=== PATIENT | male | born 1955 | race Caucasian/White ===

== ENCOUNTER 2017-10-06 03:45 | Inpatient (IN) | payer OTHER ==
[~2017-10-06] VITALS: Ht 162.6 cm; Wt 77.7 kg
[~2017-10-06 03:45] MED LIST: ERGO400 PO; METF500 PO; Prinivil10 MG PO
[2017-10-06 04:13] LABS: BASOPHILS PERCENT AUTO 1 % (0-2); EOSINOPHILS ABSOLUTE AUTO 0.23 K/mm3 (0.00-0.68); EOSINOPHILS PERCENT AUTO 1 % (0-6); Hematocrit 37.1 % (37.0-53.0); Hemoglobin 12.2 g/dL (13.5-17.5); IMMATURE GRAN ABSOLUTE AUTO 0.15 K/mm3 (0.00-0.10); IMMATURE GRAN PERCENT AUTO 1 % (0-1); LYMPHOCYTES ABSOLUTE AUTO 4.38 K/mm3 (0.84-5.20); LYMPHOCYTES PERCENT AUTO 22 % (21-46); MONOCYTES ABSOLUTE AUTO 1.05 K/mm3 (0.16-1.47); MONOCYTES PERCENT AUTO 5 % (4-13); Mean Corpuscular HGB 30.5 pg (26.0-34.0); Mean Corpuscular HGB Conc 32.9 g/dL (31.5-36.5); Mean Corpuscular Volume 93 fL (80-100); Mean Platelet Volume 9.5 fL (9.1-12.4); NEUTROPHILS ABSOLUTE AUTO 14.06 K/mm3 (1.96-9.15); NEUTROPHILS PERCENT AUTO 70 % (41-73); Platelet Count 275 K/mm3 (150-400); RDW Coefficient Variation 12.6 % (11.7-14.2); RDW Standard Deviation 43.1 fL (35.1-46.3); White Blood Cell Count 19.97 K/mm3 (4.00-11.30)
[2017-10-06 04:25] LABS: Calcium, Ionized (POC) 1.08 mmol/L (1.10-1.46); Chloride (POC) 102 mmol/L (98-108); Creatinine (POC) 1.8 mg/dL (0.8-1.3); Glucose (ISTAT POC) 282 mg/dL (70-99); Hemoglobin (POC) 11.6 g/dL (13.5-17.5); Potassium (POC) 4.8 mmol/L (3.5-5.5); Sodium (POC) 140 mmol/L (135-148); Total CO2 (POC) 23 mmol/L (21-32)
[2017-10-06 04:29] LABS: International Normalized Ratio 1.02; Prothrombin Time Results 10.6 Sec (9.7-11.5)
[2017-10-06 04:32] LABS: Alanine Aminotransfer (ALT/SGP 20 U/L (12-78); Albumin, Blood 3.3 g/dL (3.4-5.0); Alk Phos 58 U/L (50-136); Anion Gap 10 mmol/L (6-16); Aspartate Aminotrans (AST/SGOT 13 U/L (12-37); Bilirubin, Total 0.5 mg/dL (0.1-1.0); Blood Urea Nitrogen 33 mg/dL (8-24); Bun/Creatinine Ratio 18.9 (12.0-20.0); CO2, Blood 26 mmol/L (21-32); Chloride, Blood 106 mmol/L (98-108); Creatinine, Blood 1.75 mg/dL (0.60-1.20); Globulin, Blood 3.4 g/dL (2.2-4.0); Glomerular Filtration Rate 42 (60-); Glucose, Blood 286 mg/dL (70-99); Sodium, Blood 142 mmol/L (136-145); Total Protein, Blood 6.7 g/dL (6.4-8.2)
[2017-10-06 05:42] LABS: Troponin I <0.015 ng/mL (0.000-0.040)
[2017-10-06] MEDS ORDERED: ASPI81CH PO (06:50)
[2017-10-06 08:04] LABS: Hematocrit 27.1 % (37.0-53.0); Hemoglobin 8.9 g/dL (13.5-17.5)
[2017-10-06 15:28] LABS: Hematocrit 25.4 % (37.0-53.0); Hemoglobin 8.6 g/dL (13.5-17.5)
[2017-10-06 21:43] LABS: Hematocrit 26.5 % (37.0-53.0); Hemoglobin 9.1 g/dL (13.5-17.5)
[2017-10-07 03:48] LABS: BASOPHILS ABSOLUTE AUTO 0.05 K/mm3 (0.00-0.23); BASOPHILS PERCENT AUTO 0 % (0-2); EOSINOPHILS ABSOLUTE AUTO 0.07 K/mm3 (0.00-0.68); EOSINOPHILS PERCENT AUTO 1 % (0-6); Hemoglobin 8.7 g/dL (13.5-17.5); IMMATURE GRAN ABSOLUTE AUTO 0.06 K/mm3 (0.00-0.10); IMMATURE GRAN PERCENT AUTO 1 % (0-1); LYMPHOCYTES ABSOLUTE AUTO 3.55 K/mm3 (0.84-5.20); LYMPHOCYTES PERCENT AUTO 30 % (21-46); MONOCYTES ABSOLUTE AUTO 0.75 K/mm3 (0.16-1.47); MONOCYTES PERCENT AUTO 6 % (4-13); Mean Corpuscular HGB Conc 34.8 g/dL (31.5-36.5); Mean Platelet Volume 9.2 fL (9.1-12.4); NEUTROPHILS ABSOLUTE AUTO 7.24 K/mm3 (1.96-9.15); NEUTROPHILS PERCENT AUTO 62 % (41-73); Platelet Count 144 K/mm3 (150-400); RDW Coefficient Variation 13.7 % (11.7-14.2); RDW Standard Deviation 44.9 fL (35.1-46.3); Red Blood Cell Count 2.81 M/mm3 (4.30-5.90); White Blood Cell Count 11.72 K/mm3 (4.00-11.30)
[2017-10-07 03:58] LABS: Mean Corpuscular Volume 89 fL (80-100)
[2017-10-07 04:05] LABS: International Normalized Ratio 1.09; Prothrombin Time Results 11.4 Sec (9.7-11.5)
[2017-10-07 04:09] LABS: Albumin, Blood 2.7 g/dL (3.4-5.0); Bilirubin, Total 1.4 mg/dL (0.1-1.0); Bun/Creatinine Ratio 26.6 (12.0-20.0); Calcium, Blood 7.7 mg/dL (8.5-10.1); Creatinine, Blood 1.84 mg/dL (0.60-1.20); Globulin, Blood 2.6 g/dL (2.2-4.0); Potassium, Blood 4.5 mmol/L (3.5-5.5); Total Protein, Blood 5.3 g/dL (6.4-8.2)
[2017-10-07 09:42] LABS: Hematocrit 25.9 % (37.0-53.0)
[2017-10-07 15:45] LABS: Hematocrit 27.9 % (37.0-53.0); Hemoglobin 9.6 g/dL (13.5-17.5)
[2017-10-07 18:36] LABS: Source, Urine Clean Catch
[2017-10-07 18:46] LABS: Appearance, Urine Clear (Clear); Bilirubin, Urine Neg (Neg); Blood, Urine 1+ (Neg); Color, Urine Yellow (P-Yellow); Glucose Qualitative, Urine 1+ (Neg); Ketones, Urine Neg (Neg); Leukocyte Esterase, Urine Neg (Neg); Nitrite, Urine Neg (Neg); Protein, Urine 2+ (Neg); Urobilinogen, Urine NORM (Normal)
[2017-10-07 19:34] LABS: Bacteria Not Seen /hpf; Red Blood Cells, Urine Not Seen /hpf (0-2); Squamous Epithelial Cells Not Seen /hpf (Few); White Blood Cells, Urine Not Seen /hpf (0-5)
[2017-10-07 22:14] LABS: Hematocrit 27.3 % (37.0-53.0); Hemoglobin 9.5 g/dL (13.5-17.5)
[2017-10-08 05:45] LABS: Hematocrit 27.5 % (37.0-53.0); Hemoglobin 9.4 g/dL (13.5-17.5); Mean Corpuscular HGB 30.3 pg (26.0-34.0); Mean Corpuscular HGB Conc 34.2 g/dL (31.5-36.5); Mean Corpuscular Volume 89 fL (80-100); Mean Platelet Volume 9.9 fL (9.1-12.4); Platelet Count 163 K/mm3 (150-400); RDW Coefficient Variation 13.4 % (11.7-14.2); RDW Standard Deviation 43.2 fL (35.1-46.3); White Blood Cell Count 12.03 K/mm3 (4.00-11.30)
[2017-10-08 06:07] LABS: Albumin, Blood 2.9 g/dL (3.4-5.0); Anion Gap 7 mmol/L (6-16); Blood Urea Nitrogen 22 mg/dL (8-24); CO2, Blood 27 mmol/L (21-32); Calcium, Blood 8.4 mg/dL (8.5-10.1); Chloride, Blood 109 mmol/L (98-108); Creatinine, Blood 1.47 mg/dL (0.60-1.20); Glomerular Filtration Rate 52 (60-); Glucose, Blood 156 mg/dL (70-99); Potassium, Blood 4.3 mmol/L (3.5-5.5); Sodium, Blood 143 mmol/L (136-145)
[2017-10-08] MEDS ORDERED: OMEPRAZOLE MAGN20 MG PO (12:24)
[2017-10-08] MEDS ORDERED: ACET325 PO (12:25)
[2017-10-08] MEDS ORDERED: ONDA4ODT MM (12:29)
== END 2017-10-08 14:25 | disposition home or self-care (01) | DRG 381 ==
LOC: ER 03:45 → PCU 03:46 → MEDS 06:27 → PCU 06:31 → ICUE 14:06 → MEDS 10-07 14:45 → ENPENDDIS 10-08 11:15 → MEDS 10-08 14:25
PROVIDERS: Emergency Medicine; Family Medicine; Internal Medicine; Internal Medicine Gastroenterology
PROC: 0DJ08ZZ Inspection of Upper Intestinal Tract, Via Natural or Artificial Opening Endoscopic (ICD-10-PCS; principal; 2017-10-06 18:00)
PROC: 30233N1 Transfusion of Nonautologous Red Blood Cells into Peripheral Vein, Percutaneous Approach (ICD-10-PCS; 2017-10-07)
DX: K22.11 Ulcer of esophagus with bleeding (principal); N17.9 Acute kidney failure, unspecified; K92.0 Hematemesis; K22.2 Esophageal obstruction; K29.80 Duodenitis without bleeding; E11.9 Type 2 diabetes mellitus without complications; I10 Essential (primary) hypertension; Z79.84 Long term (current) use of oral hypoglycemic drugs; F17.210 Nicotine dependence, cigarettes, uncomplicated; D72.829 Elevated white blood cell count, unspecified; R79.89 Other specified abnormal findings of blood chemistry; D69.6 Thrombocytopenia, unspecified
CPT/HCPCS: 36415; 36416; 36430; 80047; 80053; 80069; 81001; 82947; 83036; 83690; 84484; 85014; 85018; 85025; 85027; 85384; 85610; 85730; 86850; 86900; 86901; 86920; 96361; 96365; 96375; 96376; 99285; C9113; J0744; J1430; J2405; J2550; J2765; J7030; P9016

== ENCOUNTER 2017-11-30 08:46 | Day surgery (SDC) | payer OTHER ==
[~2017-11-30] VITALS: Ht 167.6 cm; Wt 77.7 kg
[~2017-11-30 08:46] MED LIST changes: +ACET325 PO; +ASPI81CH PO; +OMEPRAZOLE MAGN20 MG PO; +ONDA4ODT MM
[2017-11-30] MEDS ORDERED: AMLO5 PO (09:13)
== END 2017-11-30 10:28 | disposition home or self-care (01) ==
LOC: ORSCSDS 08:46
PROVIDERS: Internal Medicine Gastroenterology
PROC: 0DB68ZX Excision of Stomach, Via Natural or Artificial Opening Endoscopic, Diagnostic (ICD-10-PCS; principal; 2017-11-30 10:15)
PROC: 0D758ZZ Dilation of Esophagus, Via Natural or Artificial Opening Endoscopic (ICD-10-PCS; principal; 2017-11-30 10:15)
DX: K22.2 Esophageal obstruction (principal); I10 Essential (primary) hypertension; E11.9 Type 2 diabetes mellitus without complications; Z87.19 Personal history of other diseases of the digestive system; Z79.82 Long term (current) use of aspirin; Z79.84 Long term (current) use of oral hypoglycemic drugs; Z79.899 Other long term (current) drug therapy; F17.210 Nicotine dependence, cigarettes, uncomplicated
CPT/HCPCS: 82947; 88305; 88342; J7120

== ENCOUNTER 2019-12-23 09:38 | Day surgery (SDC) | payer OTHER ==
[~2019-12-23] VITALS: Ht 167.6 cm; Wt 76.9 kg
[~2019-12-23 09:38] MED LIST changes: +AMLO5 PO
--- NOTE | 2019-12-23 11:03 | NUR ---
Ambulatory in Day Surgery History, Chart, Medications and Allergies reviewed before start of procedure. Lungs clear T/O to Auscultation. Patient confirms NPO status and agrees with scheduled surgery. Patient States Post-Procedure ride home has been arranged.
[2019-12-23] MEDS ORDERED: ATOR80 PO (11:08)
[2019-12-23] MEDS ORDERED: ZYRTEC10 M4 PO (11:09)
[2019-12-23] MEDS ORDERED: SYMBICORT 16010.2 GM INH (11:10)
[2019-12-23] MEDS ORDERED: ALBU90OI INH (11:10)
--- NOTE | 2019-12-23 12:15 | NUR ---
12/23/19 1215 DOROTHY GILMORE History, Chart, Medications and Allergies reviewed before start of procedure. 3-LEAD EKG REVIEWED WITH PHYSICIAN PRIOR TO START OF PROCEDURE. O2 VIA N/C INTACT THROUGHOUT SEDATION/PROCEDURE. MONITOR INTACT WITH CONTINUOUS PULSE OXIMETRY AND INTERMITTENT BP. PATIENT DETERMINED TO BE ASA APPROPRIATE FOR PROPOFOL SEDATION PRIOR TO START OF PROCEDURE BY .
--- NOTE | 2019-12-23 13:09 | NUR ---
TOLERATING WATER WELL. NO C/O. RIDE HOME CALLED AND HERE. Discharge instructions reviewed with patient. Patient verbalizes understanding. Copy given to patient to take home. Discharged via wheelchair to private car for ride home.
== END 2019-12-23 13:09 | disposition home or self-care (01) ==
LOC: ORSCMMR 09:38 → ORD 10:30 → ORSCMMR 13:09
PROVIDERS: Internal Medicine Gastroenterology
PROC: 0DBN8ZX Excision of Sigmoid Colon, Via Natural or Artificial Opening Endoscopic, Diagnostic (ICD-10-PCS; principal; 2019-12-23 10:30)
DX: Z12.11 Encounter for screening for malignant neoplasm of colon (principal); Z86.010 Personal history of colon polyps; K63.5 Polyp of colon; Z87.11 Personal history of peptic ulcer disease; I10 Essential (primary) hypertension; E78.00 Pure hypercholesterolemia, unspecified; F17.210 Nicotine dependence, cigarettes, uncomplicated; Z79.84 Long term (current) use of oral hypoglycemic drugs; Z79.899 Other long term (current) drug therapy
CPT/HCPCS: 82947; 88305; J2704; J7120

== ENCOUNTER → 2021-11-24 | Outpatient (CLI) | payer OTHER ==
[~2021-11-24] MED LIST changes: +ALBU90OI INH; +ATOR80 PO; +SYMBICORT 16010.2 GM INH; +ZYRTEC10 M4 PO
== END | disposition home or self-care (01) ==
LOC: LAB SHORT 12:00
DX: I10 Essential (primary) hypertension (principal)
CPT/HCPCS: 82043

== ENCOUNTER → 2021-12-20 | Outpatient (CLI) | payer OTHER ==
[2021-12-20 10:45] LABS: Source, Urine Clean Catch
[2021-12-20 12:32] LABS: Bilirubin, Urine Neg (Neg); Blood, Urine 2+ (Neg); Glucose Qualitative, Urine Neg (Neg); Ketones, Urine Neg (Neg); Leukocyte Esterase, Urine Neg (Neg); Nitrite, Urine Neg (Neg); Protein, Urine 3+ (Neg); Specific Gravity, Urine 1.015 (1.003-1.022); Urobilinogen, Urine NORM (Normal)
[2021-12-20 13:54] LABS: Appearance, Urine Hazy (Clear); Color, Urine Pale Yellow (P-Yellow)
[2021-12-20 13:55] LABS: Bacteria Few /hpf; Hyaline Casts 0-2 /lpf (0-2); Squamous Epithelial Cells Rare /hpf (Few)
== END | disposition home or self-care (01) ==
LOC: LAB SHORT 10:43 → LAB 10:43
PROVIDERS: Internal Medicine Nephrology
DX: N18.4 Chronic kidney disease, stage 4 (severe) (principal)
CPT/HCPCS: 81001

== ENCOUNTER → 2022-01-10 | Outpatient (CLI) | payer OTHER ==
[2022-01-10 12:56] LABS: Source, Urine Voided
[2022-01-10 14:10] LABS: Appearance, Urine Clear (Clear); Bilirubin, Urine Neg (Neg); Blood, Urine 1+ (Neg); Color, Urine Yellow (P-Yellow); Glucose Qualitative, Urine Neg (Neg); Ketones, Urine Neg (Neg); Leukocyte Esterase, Urine Neg (Neg); Nitrite, Urine Neg (Neg); Protein, Urine 3+ (Neg); Specific Gravity, Urine 1.015 (1.003-1.022); Urobilinogen, Urine NORM (Normal)
[2022-01-10 14:31] LABS: Bacteria Few /hpf; Hyaline Casts 0-2 /lpf (0-2); Squamous Epithelial Cells Rare /hpf (Few)
[2022-01-10 14:51] LABS: Anion Gap 6 mmol/L (6-16); Blood Urea Nitrogen 32 mg/dL (8-24); Bun/Creatinine Ratio 11.5 (12.0-20.0); CO2, Blood 26 mmol/L (21-32); Calcium, Blood 8.5 mg/dL (8.5-10.1); Chloride, Blood 108 mmol/L (98-108); Creatinine, Blood 2.78 mg/dL (0.60-1.20); Creatinine, Urine Random 98.9 mg/dL (27.00-270.00); Glomerular Filtration Rate 24 (60-); Glucose, Blood 115 mg/dL (70-99); Phosphorus, Blood 4.7 mg/dL (2.5-4.9); Protein, Urine Random 136.5 mg/dL (0.0-11.9); Protein/Creat Ratio, Ur Random 1.4; Sodium, Blood 140 mmol/L (136-145); Uric Acid, Blood 9.1 mg/dL (3.5-7.2)
== END | disposition home or self-care (01) ==
LOC: LAB SHORT 12:51
PROVIDERS: Internal Medicine Nephrology
DX: N18.4 Chronic kidney disease, stage 4 (severe) (principal)
CPT/HCPCS: 36415; 80069; 81001; 82570; 84156; 84550

== ENCOUNTER → 2023-09-28 | Outpatient (CLI) | payer OTHER ==
[2023-09-28 11:56] LABS: Bilirubin, Urine Neg (Neg); Blood, Urine 1+ (Neg); Glucose Qualitative, Urine Neg (Neg); Ketones, Urine Neg (Neg); Leukocyte Esterase, Urine Neg (Neg); Nitrite, Urine Neg (Neg); Protein, Urine 3+ (Neg); Specific Gravity, Urine 1.015 (1.003-1.022); Urobilinogen, Urine NORM (Normal)
[2023-09-28 12:08] LABS: Appearance, Urine Clear (Clear); Color, Urine Pale Yellow (P-Yellow)
[2023-09-28 12:09] LABS: Bacteria Rare /hpf; Squamous Epithelial Cells Rare /hpf (Few); White Blood Cells, Urine 0-2 /hpf (0-5)
[2023-09-28 13:08] LABS: Creatinine, Urine Random 74.6 mg/dL (27.00-270.00); Protein, Urine Random 77.2 mg/dL (0.0-11.9)
== END | disposition home or self-care (01) ==
LOC: LAB SHORT 08:50 → LAB 08:50 → EDSTATUS 09-27 08:40 → LAB FUT 09-27 08:40
PROVIDERS: Hospitalist
DX: I12.9 Hypertensive chronic kidney disease with stage 1 through stage 4 chronic kidney disease, or unspecified chronic kidney disease (principal); N18.4 Chronic kidney disease, stage 4 (severe)
CPT/HCPCS: 81001; 82570; 84156

== ENCOUNTER 2024-12-16 06:23 | Day surgery (SDC) | payer OTHER ==
[~2024-12-16] VITALS: Ht 162.6 cm; Wt 83.5 kg
[~2024-12-16 06:23] MED LIST changes: +ANORO ELLIPTA1 EAC1 IH; +GLIPIZIDE ER5 MG; +LISINOPRIL-HCT1 EAC1 PO; +Lidocaine 1%-Epineph 1:100000 20 ML MDV ONE; +MONT10T PO; +NS 500 ML IV ONE; +OMEP20ER PO; -OMEPRAZOLE MAGN20 MG PO; +Sodium Bicarb 8.4% 1 MEQ/ML 50 ML Vial ONE
[2024-12-16] MEDS ORDERED: CeFAZolin Sodium 2,000 MG VIAL ONE (06:56)
--- NOTE | 2024-12-16 07:23 | NUR ---
12/16/24 0723 Salima Christiansen 0711: 8 CC OF MIX OF 9 CC LIDOCAINE 1% WITH EPI 1:100,000 WITH 1 CC SODIUM BICARB, PT TOLERATED WELL
[2024-12-16] MEDS ORDERED: NS 500 ML IV ONE ×2 (07:24→07:48)
[2024-12-16 08:12] VITALS: BP 114/72
--- NOTE | 2024-12-16 08:17 | NUR ---
12/16/24 0817 VIRA SCHUMACHER PT LUNGS CLEARED W/ COUGH
== END 2024-12-16 08:29 | disposition home or self-care (01) ==
LOC: ORSCSDS 06:23
PROVIDERS: Orthopaedic Surgery
PROC: 01N54ZZ Release Median Nerve, Percutaneous Endoscopic Approach (ICD-10-PCS; principal; 2024-12-16 08:00)
DX: G56.02 Carpal tunnel syndrome, left upper limb (principal); E11.22 Type 2 diabetes mellitus with diabetic chronic kidney disease; I12.9 Hypertensive chronic kidney disease with stage 1 through stage 4 chronic kidney disease, or unspecified chronic kidney disease; N18.9 Chronic kidney disease, unspecified; G47.33 Obstructive sleep apnea (adult) (pediatric); F17.210 Nicotine dependence, cigarettes, uncomplicated; Z79.899 Other long term (current) drug therapy
CPT/HCPCS: 82947; J0690; J2704; J7040

== ENCOUNTER 2025-02-03 11:20 | Emergency (ER) | payer OTHER ==
[~2025-02-03] VITALS: Ht 162.6 cm; Wt 84.4 kg
[~2025-02-03 11:20] MED LIST changes: -Lidocaine 1%-Epineph 1:100000 20 ML MDV ONE; -NS 500 ML IV ONE; -Sodium Bicarb 8.4% 1 MEQ/ML 50 ML Vial ONE
[2025-02-03] MEDS ORDERED: NS 1,000 ML IV SCH (11:40)
[2025-02-03] MEDS ORDERED: Ondansetron HCl 2 MG / ML 2ML Vial IV ONE ×2 (11:40→14:50)
[2025-02-03 13:48] LABS: BASOPHILS ABSOLUTE AUTO 0.02 K/mm3 (0.00-0.23); BASOPHILS PERCENT AUTO 0 % (0-2); EOSINOPHILS ABSOLUTE AUTO 0.11 K/mm3 (0.00-0.68); EOSINOPHILS PERCENT AUTO 2 % (0-6); Hematocrit 30.1 % (37.0-53.0); Hemoglobin 10.1 g/dL (13.5-17.5); IMMATURE GRAN ABSOLUTE AUTO 0.03 K/mm3 (0.00-0.10); IMMATURE GRAN PERCENT AUTO 0 % (0-1); LYMPHOCYTES ABSOLUTE AUTO 1.47 K/mm3 (0.84-5.20); LYMPHOCYTES PERCENT AUTO 21 % (21-46); MONOCYTES ABSOLUTE AUTO 0.51 K/mm3 (0.16-1.47); MONOCYTES PERCENT AUTO 7 % (4-13); Mean Corpuscular HGB Conc 33.6 g/dL (31.5-36.5); Mean Corpuscular Volume 84 fL (80-100); NEUTROPHILS ABSOLUTE AUTO 5.02 K/mm3 (1.96-9.15); NEUTROPHILS PERCENT AUTO 70 % (41-73); NRBC ABSOLUTE 0.00 K/mm3 (0.00-0.02); NRBC Auto 0.0 /100 WBC (0.0-0.2); Platelet Count 198 K/mm3 (150-400); RDW Coefficient Variation 15.9 % (11.7-14.2); RDW Standard Deviation 49.2 fL (35.1-46.3)
[2025-02-03 14:14] LABS: Alanine Aminotransfer (ALT/SGP 24.0 U/L (12-78); Albumin, Blood 3.3 g/dL (3.4-5.0); Albumin/Globulin Ratio 0.8 (0.8-1.8); Anion Gap 14.0 mmol/L (3-11); Aspartate Aminotrans (AST/SGOT 17.0 U/L (12-37); Bilirubin, Total 0.4 mg/dL (0.1-1.0); Blood Urea Nitrogen 88.0 mg/dL (8-24); CO2, Blood 17.0 mmol/L (21-32); Calcium, Blood 7.7 mg/dL (8.5-10.1); Chloride, Blood 107.0 mmol/L (98-108); Creatinine, Blood 5.81 mg/dL (0.60-1.20); Globulin, Blood 4.0 g/dL (2.2-4.0); Glucose, Blood 92.0 mg/dL (70-99); Potassium, Blood 4.5 mmol/L (3.5-5.5); Sodium, Blood 133.0 mmol/L (136-145); Total Protein, Blood 7.3 g/dL (6.4-8.2)
[2025-02-03 16:46] LABS: Source, Urine Voided
[2025-02-03 16:58] LABS: Bilirubin, Urine Neg (Neg); Glucose Qualitative, Urine Neg (Neg); Ketones, Urine Neg (Neg); Leukocyte Esterase, Urine Neg (Neg); Protein, Urine 3+ (Neg); Specific Gravity, Urine 1.020 (1.003-1.022); Urobilinogen, Urine NORM (Normal)
[2025-02-03 17:15] LABS: Color, Urine Pale Yellow (P-Yellow)
[2025-02-03 17:16] LABS: Red Blood Cells, Urine 0-2 /hpf (0-2); White Blood Cells, Urine 0-2 /hpf (0-5)
[2025-02-03 18:07] VITALS: BP 117/57
== END 2025-02-03 18:08 | disposition home or self-care (01) ==
LOC: ER 11:20
PROVIDERS: Emergency Medicine
DX: I12.9 Hypertensive chronic kidney disease with stage 1 through stage 4 chronic kidney disease, or unspecified chronic kidney disease (principal); E11.22 Type 2 diabetes mellitus with diabetic chronic kidney disease; N18.9 Chronic kidney disease, unspecified; J44.9 Chronic obstructive pulmonary disease, unspecified; F17.200 Nicotine dependence, unspecified, uncomplicated; Z79.84 Long term (current) use of oral hypoglycemic drugs; Z79.899 Other long term (current) drug therapy
CPT/HCPCS: 80053; 81001; 83690; 85025; 96374; 99283-25; J2405; J7030

== ENCOUNTER 2025-05-25 20:22 | Emergency (ER) | payer OTHER ==
[~2025-05-25] VITALS: Ht 162.6 cm; Wt 84.8 kg
[2025-05-25] MEDS ORDERED: NS 1,000 ML IV SCH (20:50)
[2025-05-25] MEDS ORDERED: Ondansetron HCl 2 MG / ML 2ML Vial IV ONE (20:50)
[2025-05-25] MEDS ORDERED: Pantoprazole Sodium 40 MG Injection IV ONE (20:55)
[2025-05-25 21:12] LABS: pH Blood Venous 7.39 (7.34-7.37)
[2025-05-25 21:28] LABS: BASOPHILS ABSOLUTE AUTO 0.05 K/mm3 (0.00-0.23); BASOPHILS PERCENT AUTO 0 % (0-2); EOSINOPHILS ABSOLUTE AUTO 0.08 K/mm3 (0.00-0.68); EOSINOPHILS PERCENT AUTO 1 % (0-6); Hematocrit 33.1 % (37.0-53.0); Hemoglobin 11.1 g/dL (13.5-17.5); IMMATURE GRAN ABSOLUTE AUTO 0.05 K/mm3 (0.00-0.10); IMMATURE GRAN PERCENT AUTO 0 % (0-1); LYMPHOCYTES ABSOLUTE AUTO 2.50 K/mm3 (0.84-5.20); LYMPHOCYTES PERCENT AUTO 19 % (21-46); MONOCYTES ABSOLUTE AUTO 0.86 K/mm3 (0.16-1.47); MONOCYTES PERCENT AUTO 6 % (4-13); Mean Corpuscular HGB Conc 33.5 g/dL (31.5-36.5); Mean Corpuscular Volume 86 fL (80-100); NEUTROPHILS ABSOLUTE AUTO 9.96 K/mm3 (1.96-9.15); NEUTROPHILS PERCENT AUTO 74 % (41-73); NRBC ABSOLUTE 0.00 K/mm3 (0.00-0.02); NRBC Auto 0.0 /100 WBC (0.0-0.2); Platelet Count 250 K/mm3 (150-400); RDW Coefficient Variation 13.2 % (11.7-14.2); RDW Standard Deviation 41.5 fL (35.1-46.3)
[2025-05-25 22:48] LABS: Alanine Aminotransfer (ALT/SGP 26.0 U/L (12-78); Albumin, Blood 3.5 g/dL (3.4-5.0); Albumin/Globulin Ratio 0.9 (0.8-1.8); Anion Gap 10.0 mmol/L (3-11); Aspartate Aminotrans (AST/SGOT 21.0 U/L (12-37); Bilirubin, Total 0.5 mg/dL (0.1-1.0); Blood Urea Nitrogen 48.0 mg/dL (8-24); CO2, Blood 23.0 mmol/L (21-32); Calcium, Blood 9.0 mg/dL (8.5-10.1); Chloride, Blood 106.0 mmol/L (98-108); Creatinine, Blood 3.87 mg/dL (0.60-1.20); Globulin, Blood 4.1 g/dL (2.2-4.0); Glucose, Blood 119.0 mg/dL (70-99); Potassium, Blood 4.4 mmol/L (3.5-5.5); Sodium, Blood 135.0 mmol/L (136-145); Total Protein, Blood 7.6 g/dL (6.4-8.2)
[2025-05-26] MEDS ORDERED: Metoclopramide HCl 5MG / ML 2ML Vial IV ONE (00:15)
[2025-05-26] MEDS ORDERED: NS 1,000 ML IV SCH (00:30)
[2025-05-26 00:56] LABS: Source, Urine Clean Catch
[2025-05-26 01:15] LABS: Bilirubin, Urine Neg (Neg); Glucose Qualitative, Urine Neg (Neg); Ketones, Urine Neg (Neg); Leukocyte Esterase, Urine Neg (Neg); Protein, Urine 4+ (Neg); Specific Gravity, Urine 1.015 (1.003-1.022); Urobilinogen, Urine NORM (Normal)
[2025-05-26 01:54] LABS: Color, Urine Pale Yellow (P-Yellow)
[2025-05-26 01:55] LABS: Red Blood Cells, Urine 0-2 /hpf (0-2); White Blood Cells, Urine 0-2 /hpf (0-5)
[2025-05-26] MEDS ORDERED: ONDA4ODT MM (04:32)
[2025-05-26] MEDS ORDERED: RX Prepack 2 Tabs Ondansetron ODT 4MG UD ONE (04:35)
[2025-05-26 04:45] VITALS: BP 177/97
== END 2025-05-26 04:50 | disposition home or self-care (01) ==
LOC: ER 20:22
PROVIDERS: Emergency Medicine
DX: R11.2 Nausea with vomiting, unspecified (principal); D64.9 Anemia, unspecified; T73.0XXA Starvation, initial encounter; E88.89 Other specified metabolic disorders; I12.9 Hypertensive chronic kidney disease with stage 1 through stage 4 chronic kidney disease, or unspecified chronic kidney disease; E11.22 Type 2 diabetes mellitus with diabetic chronic kidney disease; N18.9 Chronic kidney disease, unspecified; J44.9 Chronic obstructive pulmonary disease, unspecified; F17.200 Nicotine dependence, unspecified, uncomplicated; Z79.899 Other long term (current) drug therapy; X58.XXXA Exposure to other specified factors, initial encounter
CPT/HCPCS: 74176; 80053; 81001; 82010; 82803; 83605; 83690; 84484; 85025; 93005; 93010; 96361; 96374; 96375; 99284-25; A9270; J2405; J2470; J2765; J7030